=== PATIENT | female | born 1955 | race Two or more races ===

== ENCOUNTER 2021-03-19 12:56 | Outpatient (CLI) | payer MEDICARE, OTHER, SELFPAY ==
--- NOTE | 2021-03-19 | BLA_PTH ---
PATIENT: SONIDO HERNANDEZ [facility]: [facility] U#:[id number] AGE/SX: 65/F ROOM: RE03/19/[address]: Dr. 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 Lichenoid mucositis. Negative for malignancy. Negative for fungal organisms. See comment. AM:leonardo 03/20/2021 COMMENT GMS stain with matched control was used in the evaluation of this case. MICROSCOPIC DESCRIPTION Slides are reviewed. GROSS DESCRIPTION Received in fixative is one container labeled with the patient's name and designated tongue. The specimen consists of a single, irregular fragment of banks tissue measuring 0.8 x 0.5 x 0.3 cm. The specimen is inked, bisected and totally submitted in one cassette. / AM:leonardo 03/19/2021 TC:3 CPT: 61108, 14839
--- NOTE | 2021-03-19 | BLA_PTH ---
PATIENT: SONIDO HERNANDEZ LOC: [facility] U#:[id number] AGE/SX: 65/F ROOM: RE03/19/[address]: Dr. Jacob Prince, DUNIA : 1955 BED: DIS: 03/19/2021 SPEC #: [id number] RECD: 03/19/21 13:12 STATUS: PARVEEN JEREMÍAS #: [id number] ROSA: 03/19/21 00:[address]: Jacob Prince DEPT: SURGICAL PATHOLOGY RECD BY: Ellis Saunders Tissues: Tongue, NOS Procedures: Special Stain Group I Surgery Specimen Level IV GMS Stain (control) HEADER OPERATION: Biopsy right tongue PRE-OP DIAGNOSIS: Chronic small ulcer TISSUE SUBMITTED: Chronic ulcer / white leukoplakia MICROSCOPIC DIAGNOSIS Lesion of right tongue, biopsy: Moderate squamous atypia, focally extending to margin of excision. Mild squamous acanthosis, hyperkeratosis and parakeratosis. Lichenoid mucositis. Negative for malignancy. Negative for fungal organisms. See comment. AM:leonardo 03/20/2021 AM:leonardo 03/25/2021 COMMENT GMS stain with matched control was used in the evaluation of this case. Case has been reviewed in consultation with Dr. Grimaldo who concurs with the above diagnosis. IDC:[id number] MICROSCOPIC DESCRIPTION Slides are reviewed. GROSS DESCRIPTION Received in fixative is one container labeled with the patient's name and designated tongue. The specimen consists of a single, irregular fragment of banks tissue measuring 0.8 x 0.5 x 0.3 cm. The specimen is inked, bisected and totally submitted in one cassette. / AM:leonardo 03/19/2021 TC:3 CPT: 02572, 63011
== END 2021-03-19 23:59 | disposition short-term general hospital (02) ==
LOC: LABSPEC 13:02
PROVIDERS: Visit Provider Dentist Oral and Maxillofacial Surgery
DX: K14.3 Hypertrophy of tongue papillae (principal); K14.8 Other diseases of tongue; K12.30 Oral mucositis (ulcerative), unspecified
CPT/HCPCS: 88305; 88312